=== PATIENT | female | born 1935 | race Caucasian/White ===

== ENCOUNTER 2025-07-24 11:05 | Outpatient (CLI) | payer OTHER ==
[~2025-07-24 11:05] MED LIST: IODIXANOL 320 MG/ML INFUS..BTL 100ML IV ONE
[2025-07-24 11:33] LABS: MEAN PLATELET VOLUME 9.5 FL (7.4-10.4); RED CELL DISTRIBUTION WIDTH 19.1 % (11.5-14.5)
[2025-07-24 11:44] LABS: APTT 25 SECONDS (22-32); INR 1.1 INR
[2025-07-24 11:59] LABS: PLATELET ESTIMATE DECREASED
[2025-07-24 12:02] LABS: ELLIPTOCYTES FEW
[2025-07-24 12:12] LABS: CREATININE 0.93 MG/DL (0.40-0.90); PRO BRAIN NATRIURETIC PEPTIDE 457 PG/ML (0-450); TOTAL CARBON DIOXIDE 33.8 MMOL/L (24-32); eGFR 57 ML/MIN
--- NOTE | 2025-07-24 13:37 | ELECTROCARDIOGRAPH REPORT ---
[facility] Test Date: 2025-07-24 Test Time: 12:16:58 Pat Name: FELISHA PAREKH Department: PRE/OP CARDIOLOGY [id number] Room: Gender: F Director [employer]oles[employer]: NENA : 1935 Requested By: TIA DEL VALLE Order Number: [id number] Reading MD: Dr. MALENA Stephen Measurements Intervals [place] Rate: 89 P: 86 AL: 269 QRS: 107 QRSD: 133 T: 4 QT: 360 QTc: 439 Interpretive Statements Sinus rhythm Prolonged AL interval RBBB and LPFB Probable posterior infarct, acute Lateral leads are also involved Electronically Signed On 07-24-2025 17:16:[address] MALENA Stephen Please click the below link to view image of tracing.
--- NOTE | 2025-07-24 14:10 | VASCULAR REPORT ---
Carotid Duplex Date: 07/24/2025 11:23 AM Clinical History: pre op Comparison: None Technique: Duplex Doppler evaluation of the extracranial carotid and vertebral arteries including color Doppler and spectral/pulsed waveform analysis was performed. Findings: Indications Pre-op Doppler Spectral Velocity Analysis Right Left pCCA 96/14 cm/s pCCA 103/17 cm/s dCCA 103/13 cm/s dCCA 110/17 cm/s ECA 61/ cm/s ECA 77/ cm/s pICA 85/22 cm/s pICA 114/29 cm/s Damián 126/28 cm/s Damián 112/34 cm/s dICA 91/22 cm/s dICA 77/27 cm/s Vert. 77/19 cm/s Vert. 75/18 cm/s Subcl. 108/ cm/s Subcl. 139/ cm/s ICA/CCA 1.22 ICA/CCA 1.04 Real-Time B-Mode Imaging Area Findings Right Left CCA Plaque Composition Heterogeneous Intimal thickening Plaque Description Irregular BIF Plaque Composition Heterogeneous Heterogeneous Plaque Description Irregular Irregular ICA Plaque Composition Heterogeneous Heterogeneous Plaque Description Irregular Irregular Plaque Area Focal Focal ECA Plaque Composition Intimal thickening Heterogeneous Plaque Description Irregular Vertebral Antegrade Antegrade Subclavian Multiphasic Multiphasic CONCLUSION <50% stenosis detected in the Internal Carotid Arteries bilaterally. <50% stenosis detected in the bilateral External Carotid Arteries and bilateral Common Carotid Arteries. Antegrade flow noted within the Vertebral Arteries bilaterally. Multiphasic waveforms noted in the bilateral Subclavian Arteries. Avascular structure noted noted at the level of the right thyroid measuring 1.7cm x 1.0cm. Please see images 38-48.
--- NOTE | 2025-07-24 14:11 | RADIOLOGY REPORT ---
DI CHEST,TWO VIEWS CLINICAL HISTORY: SOB COMPARISON: None TECHNIQUE: Frontal and lateral view of the chest was obtained FINDINGS: Lines and Tubes: None Lungs: No focal consolidation. Pleura: No effusion. No pneumothorax. Cardiomediastinal contours: Unremarkable Bones: No acute osseous abnormality. IMPRESSION: Cardiomegaly with CHF
--- NOTE | 2025-07-25 12:52 | RADIOLOGY REPORT ---
CT CTA TAVR INDICATION: Stenosis , aortic valve TECHNIQUE: Gated CT angiography of the heart was performed along with CT angiography of the lower neck, chest, abdomen, and pelvis. MIP, MPR, and 3-D images were obtained. Measurements were performed on the [employer] workstation. All CT scans at this facility use dose modulation, iterative reconstruction, and/or weight based dosing when appropriate to reduce radiation dose to as low as reasonably achievable. COMPARISON: None available at the time of dictation. FINDINGS: ANNULAR PLANE DISTANCE: 23.5 x 19.2 mm AREA: 3.53 cm2 AVERAGE DIAMETER: 21.35 mm PERIMETER: 67.9 mm LEFT CORONARY ARTERY HEIGHT ABOVE ANNULAR PLANE: 12.5 mm RIGHT CORONARY ARTERY HEIGHT ABOVE ANNULAR PLANE: 14.4 mm LEFT CORONARY SINUS DIAMETER: 28.7 mm RIGHT CORONARY SINUS DIAMETER: 28.4 mm NONCORONARY CORONARY SINUS DIAMETER: 29.6 mm SINOTUBULAR JUNCTION DIAMETER: 22.7 mm RIGHT COMMON ILIAC ARTERY MINIMAL DIMENSIONS: 7.49 mm RIGHT EXTERNAL ILIAC ARTERY MINIMAL DIMENSIONS: 7.6 mm RIGHT COMMON FEMORAL ARTERY MINIMAL DIMENSIONS: 7.25 mm LEFT COMMON ILIAC ARTERY MINIMAL DIMENSIONS: 9.39 mm LEFT EXTERNAL ILIAC ARTERY MINIMAL DIMENSIONS: 7.9 mm LEFT COMMON FEMORAL ARTERY MINIMAL DIMENSIONS: 7.8 mm [LOWER NECK]: Unremarkable [LYMPH NODES/MEDIASTINUM]: Mildly prominent subcentimeter right lower paratracheal and right hilar lymph nodes, likely reactive. [CARDIOVASCULAR]: Normal cardiac size. No pericardial effusion. No aneurysmal dilatation of the great vessels. Postsurgical changes to the chest. Aorto saphenous venous graft extending to the left circumflex territory which appears to be patent. Prominence of the main pulmonary artery, which may indicate pulmonary hypertension. [LUNG PARENCHYMA/PLEURAL SPACE]: Subpleural reticulation with peripheral cystic lung change. Atelectasis and/or ground-glass in the right lung base. Possible developing honeycombing. Imaging findings may reflect nonspecific diffuse fibrosing interstitial lung disease. [CHEST WALL]: Unremarkable. [LIVER]: Normal hepatic size without suspicious focal lesion. [SPLEEN]: Unremarkable. [PANCREAS]: Unremarkable. [GALLBLADDER AND BILIARY TREE]: No cholelithiasis. No biliary dilatation. [ADRENAL GLANDS]: Unremarkable [KIDNEYS]: No hydronephrosis. No nephroureterolithiasis. Benign appearing renal cysts, compatible with Bosniak type I cyst. No imaging follow-up required. [BLADDER]: Unremarkable for the degree distention. 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 No CT evidence of bowel obstruction. Moderate to severe stool burden. Mild sigmoid diverticulosis. Correlate for constipation. [ASCITES]: Absent [LYMPHADENOPATHY]: No pathologically enlarged lymph nodes by CT size criteria [VASCULATURE]: Vascular calcifications. [ABDOMINAL WALL]: Unremarkable. [MUSCULOSKELETAL]: No acute fracture or aggressive focal osseous lesion. Multifocal degenerative change of the visualized spine. Bilateral hip arthroplasties. Acute to subacute right inferior pubic ramus fracture, insufficiency fracture pattern. Inconspicuous suspected subacute to chronic right sacral insufficiency fracture pattern. Favor chronic superior endplate compression deformities of T11 and T9 without evidence of retropulsion. IMPRESSION: 1. TAVR planning with measurements as above. 2. 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 3. Acute to subacute right inferior pubic ramus fracture, insufficiency fracture pattern. 4. Inconspicuous suspected subacute to chronic right sacral insufficiency fracture pattern. 5. Question nonspecific diffuse fibrosing interstitial lung disease.
== END 2025-07-24 23:59 | disposition home or self-care (01) ==
LOC: RAD 11:05
PROVIDERS: ATTEND Internal Medicine Cardiovascular Disease
DX: S32.591A Other specified fracture of right pubis, initial encounter for closed fracture (principal); I45.10 Unspecified right bundle-branch block; I44.5 Left posterior fascicular block; K31.89 Other diseases of stomach and duodenum; K57.30 Diverticulosis of large intestine without perforation or abscess without bleeding; N28.1 Cyst of kidney, acquired; I51.7 Cardiomegaly; I50.9 Heart failure, unspecified; I65.23 Occlusion and stenosis of bilateral carotid arteries; I35.0 Nonrheumatic aortic (valve) stenosis; R06.02 Shortness of breath; M47.814 Spondylosis without myelopathy or radiculopathy, thoracic region; M43.8X4 Other specified deforming dorsopathies, thoracic region; Z96.643 Presence of artificial hip joint, bilateral; Z98.890 Other specified postprocedural states; X58.XXXA Exposure to other specified factors, initial encounter; Y93.89 Activity, other specified; Y92.89 Other specified places as the place of occurrence of the external cause; Y99.8 Other external cause status
CPT/HCPCS: 36415; 71046; 71275; 74174; 75572; 80053; 83880; 85008; 85025; 85610; 85730; 93005; 93880; Q9967

== ENCOUNTER 2025-07-25 07:31 | Outpatient (CLI) | payer OTHER ==
[~2025-07-25] VITALS: Ht 168.9 cm; Wt 52.3 kg
[~2025-07-25 07:31] MED LIST changes: -IODIXANOL 320 MG/ML INFUS..BTL 100ML IV ONE; +metoprolol tartrate 1mg/ml inj IV ONE
[2025-07-25 13:08] VITALS: BP 90/45; PULSE 83; RESP 16; TEMP 97.4; O2SAT 98
--- NOTE | 2025-07-26 00:51 | CONSULTATION ---
DATE OF CONSULTATION: 07/25/2025 DICTATING PHYSICIAN: Morgan Lubin M.D. CARDIOVASCULAR CONSULTATION REFERRING PHYSICIAN: Dr. David. Dr. David, we had the pleasure of seeing the patient here with her son and [id number] for cardiovascular consultation with regard to severe symptomatic aortic valve stenosis. As you recall, she was recently admitted to the hospital after a mechanical fall on 07/15/2025. At that time, she was found to have severe symptomatic aortic valve stenosis and [email or web address]. Dr. Grupo Wallis was kind enough to assess her coronary arteries and bypass grafts showing no need for stenting. The patient has an extensive history of coronary artery disease and 4-vessel bypass surgery in 2020. She has known pulmonary fibrosis and is now on oxygen and sees Dr. Gonzalez here locally. She has had progressive decline in her ability to exert. She has lost some weight, but has maintained preserved overall ejection fraction and we have been asked to see her to determine what options we may have for valve replacement. PAST MEDICAL HISTORY: * Severe symptomatic aortic valve stenosis. * Pulmonary fibrosis, now on oxygen therapy. * Hypertension. * Hyperlipidemia. * Diabetes. * Coronary artery disease status post intervention in 1999 and now 4-vessel bypass surgery in 2020. PAST SURGICAL HISTORY: A 4-vessel bypass as stated with a COTTON to the LAD and a saphenous vein graft to the diagonal, obtuse marginal, and PDA in a skip fashion. MEDICATIONS: Torsemide 10 mg a day, gabapentin, potassium supplements, lisinopril 20 mg a day, hydralazine 25 mg twice a day, Lipitor 10 mg at night, metoprolol 50 mg a day. ALLERGIES: PATIENT IS ALLERGIC TO MORPHINE. SOCIAL HISTORY: Prior to her recent hospitalization, she lived by herself and was driving up until recently. Her son, Delvin, now helps her out in her plan after short-term rehab, he is to live with her son. She quit smoking when she was 39 years old and rare alcohol use. FAMILY HISTORY: Noncontributory. REVIEW OF SYSTEMS: She has progressive shortness of breath and dyspnea on exertion. Before her hospitalization, she had severe lower extremity edema, now trace pedal edema. PHYSICAL EXAMINATION: VITAL SIGNS: She is afebrile. She is 66 inches tall. She weighs about 115 pounds. Heart rate is 83. Blood pressure is about 95/45, satting 98% on 3 liters of nasal cannula. GENERAL: Frail, thin patient in no apparent distress at rest. She is wearing oxygen. HEENT: Her HEENT examination is unremarkable with no carotid bruits. CARDIOVASCULAR: Her cardiovascular exam is regular. She has a 3/6 late peaking systolic ejection murmur with a soft S2. LUNGS: Her lungs are clear anteriorly, posteriorly through the mid lungs and below. She has fine crackles. ABDOMEN: Abdomen is benign but thin. EXTREMITIES: Her extremities have trace pedal edema. LABORATORY TESTS AND EVALUATION: * CT scan shows that she is a candidate for a 23 mm Cartagena valve through a transfemoral approach. * Labs. She has a hemoglobin of 10.1, platelet count of 117,000, creatinine 0.93. * Echocardiogram shows her to have preserved LV systolic function. She does have focal basal hypertrophy of her LV septum, aortic valve area around 1 square centimeter, peak gradient across the aortic valve of 86 mmHg with a mean of 52 mmHg. No other major valve disease, elevated pulmonary artery pressures. * Angiographic imaging of her coronary anatomy, which took place on 07/18/2025, the patient does have underlying rincon coronary artery disease with a patent COTTON to the LAD and a jump graft to the diagonal OM and PDA system. Her rincon right coronary artery has previous stents with some mild in-stent restenosis and a distal lesion of about 80% narrowing. * Pulmonary function test shows an FEV1 of 1.16 L, which is 62% of predicted and FVC of 1.45 L, 57% of predicted. Her DLCO is 47% of predicted. ASSESSMENT AND PLAN: An 89-year-old patient with severe symptomatic aortic valve stenosis. She does have concomitant underlying pulmonary fibrosis, which would make her ultimate benefit from a TAVR, not as substantial as most, that having been said she has a recent hospitalization within the past week for decompensated heart failure, now improved on diuretic therapy. The patient and her family are interested in valve replacement to hopefully stabilize her underlying disease and allow her improved quality of life. We have the following plan for her: * She is a candidate for transfemoral TAVR. She will meet with our surgical team here shortly and then if she remains stable and doing well at rehab, we will bring her back in next month for valve replacement. * Pulmonary fibrosis. She is on oxygen therapy. This will ultimately limit her benefit for transfemoral aortic valve replacement, but still worth proceeding. * Underlying coronary artery disease on medical therapy, patent bypass grafts, no need for percutaneous coronary intervention. * Hypertension, well controlled. We will adjust medications as necessary. * Hyperlipidemia, on therapy. Dr. David, thank you for allowing us the opportunity to care for the patient, we will get her back here for valve replacement shortly. If we can be of any further assistance with this or any patient in the future, please do not hesitate to call. Morgan Lubin M.D. TID: [id number] RECEIPT: [id number] RADHA/JEFFY
== END 2025-07-25 23:59 | disposition home or self-care (01) ==
LOC: TAVR 07:31
PROVIDERS: ATTEND Internal Medicine Cardiovascular Disease
DX: I35.0 Nonrheumatic aortic (valve) stenosis (principal); R06.02 Shortness of breath; I65.29 Occlusion and stenosis of unspecified carotid artery
CPT/HCPCS: J3490